=== PATIENT | female | born 2000 | race Caucasian/White ===

== ENCOUNTER → 2021-11-02 16:17 | Outpatient (CLI) | payer OTHER, SELFPAY ==
--- NOTE | ~2021-11-02 | XR_ITS ---
EXAMINATION: XR chest 2V 11/02/2021 16:32 INDICATION: Shortness of breath. Asthma. PROCEDURE: 2 view chest COMPARISON: No prior studies for comparison. FINDINGS: The lungs are clear. The cardiomediastinal silhouette is within normal limits. There are no pleural effusions. There is no pneumothorax suspected. IMPRESSION: 1: NO ACUTE CARDIOPULMONARY DISEASE. Reviewed, dictated and finalized at location A.
== END ==
PROVIDERS: PCP Pediatrics; Visit Provider Pediatrics
DX: R06.02 Shortness of breath (principal); R50.9 Fever, unspecified
CPT/HCPCS: 71046